=== PATIENT | male | born 1935 | race Caucasian/White ===

== ENCOUNTER 2017-12-06 22:42 | Inpatient (IN) | payer MEDICARE, BC ==
[2017-12-06 23:43] VITALS: BMI 31.8
[2017-12-07 00:31] LABS: Phosphorus 3.6 mg/dL (2.3-4.7)
[2017-12-07 00:42] LABS: Troponin I 0.285 ng/mL (< 0.028)
[2017-12-07] MEDS ORDERED: Mag-Al 1200 mg/1200 mg/30 ML UDCUP PO PRN (01:47)
[2017-12-07] MEDS ORDERED: Senokot 8.6 MG TAB PO PRN (01:47)
[2017-12-07] MEDS ORDERED: Nitroglycerin 0.4 MG TAB (25 Tab Bottle) PO PRN (01:47)
[2017-12-07] MEDS ORDERED: Ondansetron HCl/PF 4 MG/2 ML Vial IVP PRN (01:47)
[2017-12-07] MEDS ORDERED: Calcium Carbonate 500 MG ChewTAB PO PRN (01:47)
[2017-12-07] MEDS ORDERED: Ondansetron ODT 4 MG TAB PO PRN (01:47)
[2017-12-07] MEDS ORDERED: Labetalol HCl 100 MG/20 ML VIAL SLOW IVP PRN (01:56)
[2017-12-07] MEDS ORDERED: NS 0.9% w/ 20 MEQ KCL 1,000 ML/1,000 ML BAG IV SCH (02:00)
[2017-12-07] MEDS ORDERED: Enoxaparin Sodium 80 MG/0.8 ML SYRINGE SC SCH (02:00)
[2017-12-07] MEDS: Lorazepam 1 MG TAB PO SCH (03:00)
[2017-12-07 03:58] LABS: Troponin I 0.778 ng/mL (< 0.028)
[2017-12-07] MEDS: Nitroglycerin 2% Ointment 1 INCH/1 GM Packet TOP SCH ×3 (05:54→21:51)
[2017-12-07 07:28] LABS: Anion Gap 12 mmol/L (10-20); BUN (Urea Nitrogen) 17 mg/dL (8.4-25.7); Calc. Creatinine Clearance 85 mL/min (70-130); Calcium 9.1 mg/dL (7.8-10.44); Carbon Dioxide 28 mmol/L (23-31); Cardiac Risk 3.2 (Less than 4.5); Chloride 102 mmol/L (98-107); Cholesterol 142 mg/dl (< 200 Desired); Estimated GFR-MDRD 83; Glucose 104 mg/dL (83-110); HDL Cholesterol 44 mg/dL (>60 Neg Risk); LDL Cholesterol, Calculated 81 mg/dL; Potassium 3.8 mmol/L (3.5-5.1); Sodium 138 mmol/L (136-145); Triglycerides 84 mg/dL (Less than 150)
[2017-12-07 07:40] LABS: Troponin I 1.176 ng/mL (< 0.028)
[2017-12-07] MEDS ORDERED: Aspirin 325 MG TAB PO SCH (09:00)
[2017-12-07] MEDS ORDERED: Non-Formulary Item 1 EACH (Esomeprazole Magnesium [Nexium 24hr] 40 MG) PO SCH (09:00)
--- NOTE | 2017-12-07 09:00 | HP ---
DATE OF ADMISSION: 12/06/2017 Patient was seen and examined on 12/06/2017. CHIEF COMPLAINT: Chest discomfort. HISTORY OF PRESENT ILLNESS: The patient is a transfer from [facility]. PRIMARY CARE PHYSICIAN: Dr. Malachi Pond. PRIMARY CARD FIXER: Patient has seen Dr. Chakraborty in the remote past. He has been seeing a cardio logist in the last few years. HISTORY OF PRESENT ILLNESS: Patient is an 82-year-old male who underwent coronary artery bypass graf burger in 1987, presented to [facility] with chest discomfort that started around 7:30 p. m. while he was resting at home. It was gradual onset pressure-like, precordial in location. It imp roved with nitroglycerin. He tried taking Nexium and Tums without much help. No nausea, vomiting, d iaphoresis, shortness of breath reported. No recent immobilization, travel, fever, chills, or cough reported. His initial troponin was negative. EKG showed sinus rhythm with first-degree AV block wit h some nonspecific ST-T wave changes. He was transferred to this facility for hospital admission. PAST MEDICAL HISTORY: 1. Coronary artery disease, status post CABG in 1987. 2. Hypertension. 3. Hyperlipidemia. 4. Anxiety. 5. Gastroesophageal reflux disease. 6. History of prostate cancer. 7. Macular degeneration. 8. History of migraine. PAST SURGICAL HISTORY: 1. Coronary artery bypass grafting in 1987. 2. Tonsillectomy. 3. Cataract surgery. 4. Cardiac catheterization. 5. Knee surgery. 6. Vasectomy. 7. Prostate biopsy. ALLERGIES: Patient is allergic to CODEINE causes anaphylaxis and TRAMADOL causes hallucinations. CURRENT HOME MEDICATIONS: Aspirin 81 mg daily, Ziac 10/6.25 two tablets daily, Nexium 40 mg daily, l orazepam 1.5 mg at 0600, Flomax 0.4 mg daily. SOCIAL HISTORY: Patient currently lives at home with his . He is [employer]. 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 He drinks alcohol socially. No smoking or drug use. He is retired. REVIEW OF SYSTEMS: The following complete review of systems was negative, unless otherwise mentioned in the HPI or below: Constitutional: Weight loss or gain, ability to conduct usual activities. Sk in: Rash, itching. Eyes: Double vision, pain. ENT/Mouth: Nose bleeding, neck stiffness, pain, te nderness. Cardiovascular: Palpitations, dyspnea on exertion, orthopnea. Respiratory: Shortness of breath, wheezing, cough, hemoptysis, fever, or night sweats. Gastrointestinal: Poor appetite, abdo dianne pain, heartburn, nausea, vomiting, constipation, or diarrhea. Genitourinary: Urgency, frequen cy, dysuria, nocturia. Musculoskeletal: Pain, swelling. Neurologic/Psychiatric: Anxiety, depressi on. Allergy/Immunologic: Skin rash, bleeding tendency. PHYSICAL EXAMINATION: VITAL SIGNS: Temperature 97.4, blood pressure 124/61, pulse rate of 66, respiration 16, O2 saturatio n 96% on 1 liter nasal cannula. GENERAL: An 82-year-old male in no apparent distress. Denies any chest discomfort at this time. HEENT: Atraumatic, normocephalic. Sclerae anicteric. Moist mucous membrane. No oral lesion. NECK: Supple, no JVD appreciated. No carotid bruit. LUNGS: Clear to auscultation bilaterally. HEART: S1, S2 present. Regular rate and rhythm. No murmur, rubs, or gallops appreciated. Healed m idline scar from previous CABG. ABDOMEN: Soft, nontender, bowel sounds present. EXTREMITIES: No edema or calf tenderness. NEUROLOGIC: Grossly nonfocal, moves all four extremities. PSYCHIATRY: Alert, awake, oriented x3. SKIN: Warm and dry. LYMPH NODES: No palpable lymph nodes in the neck. PERIPHERAL VASCULAR: Radial pulses palpable bilaterally. MUSCULOSKELETAL: No joint swelling or tenderness. LABORATORY FINDINGS: Labs from [facility] ER, initial troponin was negative. CBC showed WBC 9.8 with hemoglobin 14.6, hematocrit 43.6, platelet count of 594. BNP was 115. LFTs in normal range. Chemi stry showed sodium 137, potassium 3.8, chloride 97, bicarbonate of 31, BUN 17, creatinine 1.2. Last troponin at midnight is 0.285. TSH is normal. Magnesium, phosphorus in normal range. Chest x-ray in the outside facility was negative per verbal report. EKG by my review as discussed ab kumar. IMPRESSION: 1. Chest discomfort suspicious of non-ST elevation myocardial infarction. A chest discomfort resolv ed with nitroglycerin. Troponin went up to 0.285. 2. Hypertension. 3. Hyperlipidemia. 4. Anxiety. 5. Gastroesophageal reflux disease. 6. Macular degeneration. 7. Chronically elevated platelet count per PCP's office report. 8. History of prostate cancer/benign prostatic hypertrophy. 9. Obesity with a BMI of 31.9. PLAN: Patient will be monitored as a 23-hour observation. Cardiology will be consulted. We will gi ve him 1 dose of Lovenox for time being. We will continue bisoprolol with hydrochlorothiazide. Cont inue aspirin and Flomax. Continue lorazepam for anxiety. Plan of care was discussed with the patien t and the family at the bedside. They stated understanding.
[2017-12-07] MEDS: Bisoprolol Fumarate 5 MG TAB PO SCH ×2 (10:01→20:30)
[2017-12-07] MEDS: Docusate 100 MG CAP PO SCH ×2 (10:02→20:30)
[2017-12-07] MEDS ORDERED: Iopamidol 370 76% 100 ML VIAL ONE (11:11)
[2017-12-07] MEDS ORDERED: Iopamidol 370 76% 50 ML VIAL FS ONE (11:11)
--- NOTE | 2017-12-07 12:38 | CON ---
DATE OF CONSULTATION: 12/07/2017 REASON FOR CONSULTATION: Non-Q-wave myocardial infarction. HISTORY OF PRESENT ILLNESS: Mr. Arce is a very pleasant 82-year-old gentleman who has a previ ous history of CAD status post bypass surgery in 1987. He has been lost to followup. He states he h as not had cardiology followup since that time period. He states recently over the last 3 days, he h as had episodes of chest pain. He described it as epigastric. He thought it was acid reflux. He in itially took Tums with some relief. He then states yesterday he took Tums without any relief. He taylor bsequently presented to the emergency room. His troponin was mildly elevated at 1.1. PAST MEDICAL HISTORY: 1. As above. 2. CAD status post bypass surgery x4, unknown vessels. 3. Hypertension. 4. Hyperlipidemia. 5. Anxiety. 6. Prostate cancer. 7. Macular degeneration. 8. Migraine headaches. PAST SURGICAL HISTORY: Tonsillectomy, cataract surgery, knee surgery, vasectomy. ALLERGIES: CODEINE. MEDICATIONS: Include aspirin, loratadine, Ziac, Nexium and Flomax. SOCIAL HISTORY: No current tobacco or alcohol use. 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 REVIEW OF SYSTEMS: Ten-point review of systems was reviewed and as above, otherwise negative. PHYSICAL EXAMINATION: GENERAL: Patient is a pleasant male who is in no acute distress. The patient appears his stated age . VITAL SIGNS: Blood pressure 132/62, pulse 63, temperature 98.4. NEUROLOGIC: The patient is alert and oriented times 3 with no focal neurologic deficits. HEENT: Sclerae without icterus. Mouth has moist mucous membranes with normal pallor. NECK: No JVD. Carotid upstroke brisk. No bruits bilaterally. LUNGS: Clear to auscultation with unlabored respirations. BACK: No scoliosis or kyphosis. CARDIAC: Regular rate and rhythm with normal S1 and S2. No S3 or S4 noted. No significant rubs, mu rmurs, thrills, or gallops noted throughout the precordium. PMI is not displaced. There is no yung ternal heave. ABDOMEN: Soft, nontender, nondistended. No peritoneal signs present. No hepatosplenomegaly. No ab normal striae. EXTREMITIES: 2+ femoral and 2+ dorsalis pedis pulses. No cyanosis, clubbing, or edema. SKIN: No gross abnormalities. PERTINENT LABS: As above including a creatinine of 0.8, hemoglobin 14. EKG, normal sinus, nonspecif ic ST-T wave changes. IMPRESSION: 1. Non-Q-wave myocardial infarction. 2. Coronary artery disease. 3. Status post bypass surgery. RECOMMENDATIONS: Mr. Arce's symptoms certainly suggest angina. His troponin is positive. At this point, I recommend coronary angiography plus PCI. I discussed the procedure in full detail wit h Mr. Stern. The risks of the procedure were also discussed. The risks of the procedure include b ut are not limited to the following: , stroke, TN, need for emergency surgery, loss of limb, bl eeding, and infection, as well as a reaction to the dye causing kidney failure and needing long-term dialysis. I also discussed the risks of PCI to include all of the above including coronary dissectio n and perforation in addition to acute stent thrombosis and restenosis. All questions about the proc edure were answered. Given the above, the patient agreed to proceed with coronary angiography and po ssible PCI. All questions were answered. We also recommend a drug-coated stent. There are no contr aindications. Further recommendations pending the above.
[2017-12-07] MEDS ORDERED: Clopidogrel Bisulfate 300 MG TAB ONE (13:03)
[2017-12-07] MEDS ORDERED: Heparin 10,000 UNITS/1 ML VIAL ONE (13:28)
[2017-12-07] MEDS ORDERED: Adenosine 6 MG/2 ML VIAL ONE (13:28)
[2017-12-07] MEDS ORDERED: Nitroglycerin 100MG/250ML BOT 250 ML ONE (13:28)
[2017-12-07] MEDS ORDERED: Aggrastat 12.5 MG/250 ML 250 ML ONE (14:10)
[2017-12-07] MEDS ORDERED: Zolpidem Tartrate 5 MG TAB PO PRN (14:26)
[2017-12-07] MEDS ORDERED: cloNIDine 0.1 MG TAB PO PRN (14:26)
[2017-12-07] MEDS ORDERED: Nitroglycerin 0.4 MG TAB (25 Tab Bottle) SL PRN (14:26)
[2017-12-07] MEDS: Aggrastat 12.5 MG/250 ML 250 ML IVPB SCH (16:11)
[2017-12-07] MEDS: Sodium Chloride 0.9% 1,000 ML IV SCH ×2 (16:17→22:13)
--- NOTE | 2017-12-07 16:33 | EKG ---
Test Reason : POST STENT-CIRC Blood Pressure : / mmHG Vent. Rate : 067 BPM Atrial Rate : 067 BPM P-R Int : 218 ms QRS Dur : 102 ms QT Int : 474 ms P-R-T Axes : 061 -52 047 degrees QTc Int : 500 ms Sinus rhythm with 1st degree A-V block Left anterior fascicular block Cannot rule out Inferior infarct (masked by fascicular block?) , age undetermined Prolonged QT Abnormal ECG No previous ECGs available Confirmed by UZAIR JASSO, SBindu ([id number]) on 12/07/2017 4:32:25 PM Referred By: ABELARDO Confirmed By:DR. Radha DUNNE MD
[2017-12-07 19:16] LABS: Hemoglobin 13.1 g/dL (14.0-18.0); Platelet Count 630 thou/uL (130-400)
[2017-12-07] MEDS: Acetaminophen 325 MG TAB PO PRN (20:30)
[2017-12-07] MEDS: Atorvastatin Calcium 10 MG TAB PO SCH (20:30)
[2017-12-08] MEDS: Acetaminophen 325 MG TAB PO PRN (01:49)
[2017-12-08] MEDS: Aggrastat 12.5 MG/250 ML 250 ML IVPB SCH (01:54)
[2017-12-08 05:08] LABS: #Eosinphils 0.1 thou/uL (0.0-0.7); #Lymphocytes 1.2 thou/uL (1.20-3.40); #Monocytes 0.8 thou/uL (0.11-0.59); %Basophils 0.5 % (0.0-1.0); %Eosinophils 1.5 % (0.0-10.0); %Lymphocytes 12.6 % (21.0-51.0); %Monocytes 9.1 % (0.0-10.0); %Neutrophils 76.3 % (42.0-75.0); Hemoglobin 11.5 g/dL (14.0-18.0); Mean Corpuscular HGB CONC 33.7 g/dL (32.0-36.0); Mean Corpuscular Hemoglobin 30.1 pg (27.0-31.0); Mean Corpuscular Volume 89.6 fL (78.0-98.0); Mean Platelet Volume 6.1 fL (7.4-10.4); Platelet Count 601 thou/uL (130-400); RBC Distribution Width 14.2 % (11.5-14.5); Red Blood Cell (RBC) Count 3.83 mill/uL (4.70-6.10); White Blood Cell (WBC) Count 9.1 thou/uL (4.8-10.8)
[2017-12-08 05:12] LABS: ALT (SGPT) 9 U/L (8-55); AST (SGOT) 23 U/L (5-34); Albumin 3.2 g/dL (3.4-4.8); Alkaline Phosphatase 62 U/L (40-150); Anion Gap 8 mmol/L (10-20); BUN (Urea Nitrogen) 15 mg/dL (8.4-25.7); Calc. Creatinine Clearance 87 mL/min (70-130); Calcium 8.1 mg/dL (7.8-10.44); Carbon Dioxide 28 mmol/L (23-31); Chloride 104 mmol/L (98-107); Estimated GFR-MDRD 87; Globulin 1.9 g/dL (2.4-3.5); Glucose 101 mg/dL (83-110); Potassium 4.1 mmol/L (3.5-5.1); Protein, Total 5.1 g/dL (5.8-8.1); Sodium 136 mmol/L (136-145)
[2017-12-08] MEDS: Nitroglycerin 2% Ointment 1 INCH/1 GM Packet TOP SCH (05:33)
[2017-12-08] MEDS: Lorazepam 1 MG TAB PO SCH (05:33)
[2017-12-08] MEDS: Clopidogrel Bisulfate 75 MG TAB PO SCH (08:15)
[2017-12-08] MEDS: Docusate 100 MG CAP PO SCH ×2 (08:15→20:03)
[2017-12-08] MEDS: Bisoprolol Fumarate 5 MG TAB PO SCH ×2 (08:15→10:04)
--- NOTE | 2017-12-08 09:08 | PDOC.CTH ---
<Jaky Fowler - Last Filed: 12/08/17 09:06> Cardiology Progress Note - Subjective Feeling much better today. No complaints. No chest pain. - Objective Vital Signs Temp Pulse Resp BP Pulse Ox 12/08/17 05:42 92 L 12/08/17 03:45 97.9 F 64 20 111/56 L 92 L Weight 200 lb 14.4 oz 12/07/17 12/08/17 12/09/17 06:59 06:59 06:59 Intake Total 532 3162.2 Output Total 250 1130 Balance 282 2032.2 - Physical Examination General/Neuro: alert & oriented x3, NAD Neck: no JVD present Lungs: CTA Heart: RRR Abdomen: NT/ND Extremities: other: (no edema) - Telemetry Telemetry Rhythm: Sbrady - Labs Result Diagrams: 12/08/17 04:43 12/08/17 04:43 Troponin/CKMB Troponin I 1.176 ng/mL (< 0.028) H* 12/07/17 06:22 - Assessment/Plan 1. s/p NSTEMI 2. CAD s/p CABG x 4 1988 3. s/p PCI 4. HTN Stop nitropaste. start Imdur. Decrease Zebeta to prevent hypotension. Continue plavix, asa and statin. Cardiac rehab. Possible discharge tomorrow. <Santiago Mario - Last Filed: 12/09/17 07:17> Cardiology Progress Note - Objective Vital Signs Temp Pulse Pulse Pulse Resp BP BP 12/08/17 13:55 98.9 F 77 18 12/08/17 12:00 76 18 12/08/17 10:59 78 73 121/56 L 134/60 12/08/17 08:10 97.9 F 80 22 H 12/08/17 05:42 BP Pulse Ox Pulse Ox Pulse Ox 12/08/17 13:55 115/58 L 96 12/08/17 12:00 110/54 L 94 L 12/08/17 10:59 91 L 91 L 12/08/17 08:10 122/91 H 96 12/08/17 05:42 92 L Weight 200 lb 14.4 oz 12/07/17 12/08/17 12/09/17 06:59 06:59 06:59 Intake Total 532 3162.2 Output Total 250 1130 Balance 282 2032.2 - Physical Examination Extremities: other: (R groin with small hematoma and tender) - Labs Result Diagrams: 12/08/17 04:43 12/08/17 04:43 Troponin/CKMB Troponin I 1.176 ng/mL (< 0.028) H* 12/07/17 06:22 - Assessment/Plan Pt personally seen and examined by me. Change paste to imdur Right groin US
--- NOTE | 2017-12-08 19:28 | ULT ---
RIGHT GROIN ULTRASOUND WITH DUPLEX EXAMINATION: 12/08/17 HISTORY: Patient had a heart cath yesterday. Feels pain in groin when he walks. Real time imaging of the right groin shows no evidence of a hematoma. No pseudoaneurysm. Normal flow is shown within the common femoral artery and femoral vein. IMPRESSION: No evidence of hematoma or pseudoaneurysm. POS: [facility]
[2017-12-08] MEDS: Atorvastatin Calcium 10 MG TAB PO SCH (20:03)
--- NOTE | 2017-12-08 20:12 | ADD-OP ---
ADDENDUM ADDENDUM TO INTERVENTIONAL PROCEDURE: This is a very difficult case. The patient presented with unstable angina with elevated troponin. Mayuri lam was found to have severe 99% stenosis at the ostium of the saphenous vein graft to the OM2 branch. Initially a PEACOCK catheter was placed successfully. Heparin was used for anticoagulation. A loose w sunitha crossed the lesion successfully. There was no flow present after the wire crossed, which meant t he lesion was severe. A 2.0 balloon would not pass. A 1.5 balloon would not pass. A 1.2 balloon wo uld not pass. I was decided to try and place the Mailman wire for better support. This would not pa ss in through the lesion. The loose wire was then removed. The Mailman wire would not pass into the OM branch. It was then decided to proceed with better support via catheter, although there was dise ase noted the ostium. An AL1 was then placed successfully. A loose wire would not pass the lesion a fter the AL1 was placed successfully. A Whisper wire was then placed successfully across the lesion. With better support the 1.2 balloon catheter successfully crossed the lesion. This was followed by 2-0 balloon. A 2.5 x 16 mm Synergy stent was then placed. After placing this Synergy stent, there appeared to be slow reflow. Adenosine and nitroglycerin were given with improvement in flow. We then decided to proceed with stent implantation of the . This appeared to be significant. A 3.5 x 12 mm Synergy stent was then placed successfully. There appeared to be improvement in flow no je to the OM branch after IC nitroglycerin and adenosine. A 37 minutes of fluoroscopy and over 200 mL of contrast was then used. I decided to place the patient on and placed on the floor overn [facility].
[2017-12-09] MEDS: Lorazepam 1 MG TAB PO SCH (06:07)
[2017-12-09] MEDS: Bisoprolol Fumarate 5 MG TAB PO SCH (08:52)
[2017-12-09] MEDS: Docusate 100 MG CAP PO SCH (08:53)
[2017-12-09] MEDS: Clopidogrel Bisulfate 75 MG TAB PO SCH (08:53)
--- NOTE | 2017-12-09 10:23 | DIS ---
DATE OF ADMISSION: 12/07/2017 DATE OF DISCHARGE: 12/09/2017 PRIMARY CARE PHYSICIAN: Dr. Malachi Pond. DISCHARGE DIAGNOSES: 1. Non-ST elevation myocardial infarction. 2. Status post drug-eluting stent placement. 3. Coronary artery disease. 4. Hyperlipidemia. 5. Essential hypertension. 6. Gastroesophageal reflux disease. 7. Benign prostatic hypertrophy without lower urinary tract obstruction. CONSULTATION: Cardiology, Dr. Santiago Mario. PROCEDURES: 1. Echocardiogram on 12/07/2017 that showed an EF of 50%-55%, diastolic dysfunction, moderately dila je LA, mild MR, and mild TR. 2. Percutaneous transluminal coronary angiography with percutaneous intervention per Dr. Mario o n 12/07/2017; very difficult case, patient had a severe 99% stenosis of the ostium of the saphenous v ein graft to the OM2 branch. Balloon would not pass either 2.0, 1.5 or 1.2. Able to get an AL1 plac ed successfully and ultimately 2.5 x 16 mm Synergy stent followed by another 3.5 x 12 mm Synergy sten t. HISTORY AND PHYSICAL: Mr. Arce is a very pleasant 82-year-old white male who was in the Emerg ency Department with complaints of chest pain on 12/06/2017. Patient was worked up in the emergency department and found to have elevated troponin 0.285. So what we were called for admission. HOSPITAL COURSE: The patient seen and examined by Dr. Monae and placed in observation status initial ly, Cardiology was consulted and agreed that he need to proceed with coronary angiography. The patie nt went to the labor contract analyst on 12/07/2017 for stent placement which was extremely difficult as stated abo ve. Ultimately, 2 stents were placed and the patient had no resolution of symptoms. Troponin peaked at 1.1. The patient was watched overnight on Imdur from 12/08/2017-12/09/2017, today he was chest pain free a nd stable for discharge. PHYSICAL EXAMINATION: The patient was seen and examined on the day of discharge. Discharge plan and disposition was discussed with the patient's and patient at the bedside. DISCHARGE MEDICATIONS: 1. Lipitor 10 mg p.o. at bedtime. 2. Zebeta 10 mg p.o. daily. 3. Plavix 75 mg daily. 4. Isosorbide mononitrate 30 mg p.o. daily. 5. Nitroglycerin 0.4 mg sublingual q.5 minutes p.r.n. chest pain. Prescriptions of these were sent by Cardiology 6. Aspirin 81 mg daily to continue. 7. Flomax 0.4 mg daily to continue. FOLLOWUP APPOINTMENTS: 1. Primary care physician within a week. 2. Dr. Mario in 1-2 weeks. DISCHARGE DIET: Heart healthy recommended. DISCHARGE ACTIVITY: As tolerated per cardiopulmonary limits. DISCHARGE CONDITION: Stable. DISPOSITION: Discharged home via private vehicle.
[2017-12-09 12:16] VITALS: BP 117/57; TEMP 97.7
--- NOTE | 2017-12-09 16:45 | PDOC.PN ---
- Subjective Encounter Start Date: 12/08/17 Encounter Start Time: 13:00 -: old records requested/rev - Objective Resuscitation Status: Resuscitation Status FULL:Full Resuscitation Vital Signs & Weight: Vital Signs (12 hours) Temp Pulse Pulse Pulse Resp BP BP 12/09/17 11:45 97.7 F 80 18 12/09/17 09:10 92 91 156/68 H 152/76 H 12/09/17 08:00 98.6 F 78 18 BP Pulse Ox Pulse Ox 12/09/17 11:45 117/57 L 92 L 12/09/17 09:10 91 L 12/09/17 08:00 140/63 94 L Weight Weight 203 lb 4.8 oz I&O: 12/08/17 12/09/17 12/10/17 06:59 06:59 06:59 Intake Total 3162.2 1210 Output Total 1130 900 Balance 2032.2 310 Result Diagrams: 12/08/17 04:43 12/08/17 04:43 Dx/Plan - Plan * .
== END 2017-12-09 12:32 | disposition home or self-care (01) | DRG 247 ==
LOC: 2SW 22:43 → OBSVTOIN 22:43 → 2NO 12-07 11:21
PROVIDERS: ADMIT Internal Medicine; ATTEND Internal Medicine
PROC: 027035Z Dilation of Coronary Artery, One Artery with Two Drug-eluting Intraluminal Devices, Percutaneous Approach (ICD-10-PCS; principal; 2017-12-07)
PROC: 4A023N7 Measurement of Cardiac Sampling and Pressure, Left Heart, Percutaneous Approach (ICD-10-PCS; 2017-12-07)
PROC: B2111ZZ Fluoroscopy of Multiple Coronary Arteries using Low Osmolar Contrast (ICD-10-PCS; 2017-12-07)
PROC: B2151ZZ Fluoroscopy of Left Heart using Low Osmolar Contrast (ICD-10-PCS; 2017-12-07)
DX: I21.4 Non-ST elevation (NSTEMI) myocardial infarction (principal); E78.5 Hyperlipidemia, unspecified; I10 Essential (primary) hypertension; K21.9 Gastro-esophageal reflux disease without esophagitis; N40.0 Benign prostatic hyperplasia without lower urinary tract symptoms; Z95.1 Presence of aortocoronary bypass graft; Z85.46 Personal history of malignant neoplasm of prostate; F41.9 Anxiety disorder, unspecified; H35.30 Unspecified macular degeneration; E66.9 Obesity, unspecified; Z68.31 Body mass index [BMI] 31.0-31.9, adult; I25.110 Atherosclerotic heart disease of native coronary artery with unstable angina pectoris
CPT/HCPCS: 36415; 76942; 80048; 80053; 80061; 83735; 84100; 84443; 84484; 85025; 85347; 92928; 92977; 93005; 93010; 93306; 93459; 93798; 93976; 94760; A4216; C1725; C1769; C1874; C1887; C9600; J0153; J1644; J1650; J3246

== ENCOUNTER 2018-11-01 22:47 | Inpatient (IN) | payer MEDICARE, BC ==
--- NOTE | 2018-11-01 23:07 | RAD ---
XR Chest 1 View Portable History: Chest pain Comparison: None. Findings: Lungs are clear. No pneumothorax or effusion. Cardiac silhouette and mediastinal contours a re within normal limits. Evidence of prior cardiac surgery. Impression: No acute intrathoracic abnormality.
[2018-11-01 23:16] LABS: #Basophils 0.1 thou/uL (0.0-0.2); #Eosinphils 0.2 thou/uL (0.0-0.7); #Lymphocytes 2.2 thou/uL (1.20-3.40); #Neutrophils 7.5 thou/uL (1.40-6.50); %Basophils 0.6 % (0.0-1.0); %Eosinophils 2.1 % (0.0-10.0); %Monocytes 9.3 % (0.0-10.0); %Neutrophils 68.1 % (42.0-75.0); Hemoglobin 15.2 g/dL (14.0-18.0); Mean Corpuscular HGB CONC 32.2 g/dL (32.0-36.0); Mean Corpuscular Hemoglobin 28.7 pg (27.0-31.0); Mean Corpuscular Volume 89.1 fL (78.0-98.0); Mean Platelet Volume 6.4 fL (7.4-10.4); Platelet Count 868 thou/uL (130-400); RBC Distribution Width 13.9 % (11.5-14.5); Red Blood Cell (RBC) Count 5.29 mill/uL (4.70-6.10)
[2018-11-01 23:29] LABS: ALT (SGPT) 16 U/L (8-55); AST (SGOT) 20 U/L (5-34); Albumin 4.4 g/dL (3.4-4.8); Alkaline Phosphatase 87 U/L (40-150); Anion Gap 13 mmol/L (10-20); BUN (Urea Nitrogen) 15 mg/dL (8.4-25.7); Bilirubin, Total 0.7 mg/dL (0.2-1.2); CK (CPK) 62 U/L (30-200); Calc. Creatinine Clearance 0 mL/min (70-130); Calcium 9.7 mg/dL (7.8-10.44); Carbon Dioxide 28 mmol/L (23-31); Chloride 96 mmol/L (98-107); Estimated GFR-MDRD 64; Globulin 2.9 g/dL (2.4-3.5); Glucose 103 mg/dL (83-110); Lipase 20 U/L (8-78); Potassium 4.8 mmol/L (3.5-5.1); Protein, Total 7.3 g/dL (5.8-8.1); Sodium 132 mmol/L (136-145)
[2018-11-01 23:51] LABS: CKMB 2.1 ng/mL (0-6.6)
[2018-11-02] MEDS ORDERED: Aspirin Chewable 81 MG TAB ONE ×2 (02:50→02:51)
[2018-11-02] MEDS ORDERED: Nitroglycerin 0.4 MG TAB 1 EACH ONE (02:50)
[2018-11-02 03:16] LABS: Troponin I 0.081 ng/mL (< 0.028)
[2018-11-02] MEDS ORDERED: Enoxaparin Sodium 60 MG/0.6 ML SYRINGE ONE (04:58)
[2018-11-02] MEDS ORDERED: Enoxaparin Sodium 30 MG/0.3 ML SYRINGE ONE (04:58)
[2018-11-02 06:08] VITALS: BMI 29.6
[2018-11-02 06:44] LABS: Troponin I 0.158 ng/mL (< 0.028)
[2018-11-02] MEDS ORDERED: Ondansetron ODT 4 MG TAB SL PRN (07:37)
[2018-11-02] MEDS ORDERED: Ondansetron PF 4 MG/2 ML Vial IVP PRN ×2 (07:37→08:10)
[2018-11-02] MEDS ORDERED: Ondansetron ODT 4 MG TAB PO PRN (08:10)
[2018-11-02] MEDS ORDERED: hydrALAZINE 20 MG/ML VIAL SLOW IVP PRN (08:10)
[2018-11-02] MEDS ORDERED: Senokot S 8.6-50 MG TAB PO PRN (08:10)
[2018-11-02] MEDS ORDERED: Calcium Carbonate 500 MG ChewTAB PO PRN (08:10)
[2018-11-02] MEDS ORDERED: Sodium Chloride 0.65% Nasal 44 ML BOT EA NARE PRN (08:10)
[2018-11-02] MEDS ORDERED: Nitroglycerin 0.4 MG TAB (25 Tab Bottle) SL PRN (08:10)
[2018-11-02] MEDS ORDERED: Bisacodyl 10 MG SUPP PR PRN (08:10)
[2018-11-02] MEDS ORDERED: Loratadine 10 MG TAB PO PRN (08:10)
[2018-11-02] MEDS ORDERED: Loperamide HCl 2 MG CAP PO PRN ×2 (08:10)
[2018-11-02] MEDS ORDERED: Zolpidem Tartrate 5 MG TAB PO PRN (08:10)
[2018-11-02] MEDS ORDERED: Diabetic Tussin 200 MG/10 ML UDCUP PO PRN (08:10)
[2018-11-02] MEDS ORDERED: Acetaminophen 325 MG TAB PO PRN (08:10)
[2018-11-02] MEDS ORDERED: Aspirin 325 MG TAB PO SCH (09:00)
[2018-11-02] MEDS ORDERED: Metoprolol Tartrate 25 MG TAB PO SCH (09:00)
[2018-11-02 09:25] LABS: Troponin I 0.246 ng/mL (< 0.028)
[2018-11-02 09:44] LABS: Bilirubin Negative (Negative); Blood, Urine Negative (Negative); Clarity CLEAR (Clear); Glucose, Urine (Dipstick) Negative (Negative); Leukocyte Negative (Negative); Nitrite Negative (Negative); Protein, Urine (Dipstick) Negative (Neg-Trace); Specific Gravity, Urine 1.012 (1.002-1.036); Urobilinogen 0.2 mg/dL (0.2-1.0); pH, Urine 7.5 (5.0-9.0)
[2018-11-02 09:47] LABS: Bacteria/HPF None Seen HPF (None Seen); Hyaline Casts/LPF 0-3 HYALINE CAST LPF (0-3 Hyaline); RBC/HPF 0-3 HPF (0-3); Squamous Epithelial None Seen HPF (0-3); WBC/HPF None Seen HPF (0-3)
[2018-11-02] MEDS ORDERED: Prevnar 13-Val Conj/PF 0.5 ML SYRINGE IM ONE (10:15)
[2018-11-02] MEDS: Famotidine 20 MG TAB PO SCH (10:18)
[2018-11-02] MEDS: Bisoprolol Fumarate 5 MG TAB PO SCH (10:18)
[2018-11-02] MEDS: Tamsulosin HCl 0.4 MG CAP PO SCH (10:18)
[2018-11-02] MEDS: Clopidogrel Bisulfate 75 MG TAB PO SCH (10:18)
[2018-11-02] MEDS: Enoxaparin Sodium 100 MG/ML SYRINGE SC SCH ×2 (10:21→21:39)
--- NOTE | 2018-11-02 11:20 | HP ---
PRIMARY CARE PHYSICIAN: Malachi Pond MD. PRIMARY VIOLIN TUTOR: Santiago Mario MD. REASON FOR ADMISSION: Unstable angina. HISTORY OF PRESENT ILLNESS: An 83-year-old male, who has previous history of coronary artery disease, required CABG x4 in 1987, subsequently last year in November the patient had cardiac catheterization and two stents placed in one of the occluded bypass graft by Dr. Mario. The patient came this time to emergency room for evaluation of recurrent chest pain. The patient reports that about a week ago, he was having chest pain which was left-sided with radiation to left arm without any association of nausea, vomiting, diaphoresis. The patient had normal nitroglycerin at home which he took and his pain subsided. Two to three days later, he had again similar chest pain, which required nitroglycerin and the pain subsided. Yesterday, he had total three episodes of chest pain which responded to nitroglycerin, but as per his instruction, he had recurrent chest pain despite taking nitroglycerin. He decided to fall panic button and he came to emergency room for evaluation. In the emergency room, he had indeterminate troponin. He had EKG which showed nonspecific ST-T changes. He was given Lovenox 1 mg/kg, nitroglycerin, IV fluid, aspirin, and subsequently he was admitted to telemetry floor. Currently, when I saw at that time, he was not having any chest discomfort. The patient denies any orthopnea, PND, leg swelling, calf edema, or calf tenderness. He denies any palpitation, dizziness, or syncope. He denies any nausea, vomiting, or diaphoresis. REVIEW OF SYSTEMS: CONSTITUTIONAL: Negative for weight loss or gain, ability to conduct usual activities. SKIN: Negative for rash, itching. EYES: Negative for double vision, pain. ENT/MOUTH: Negative for nose bleeding, neck stiffness, pain, tenderness. CARDIOVASCULAR: Negative for palpitations, dyspnea on exertion, orthopnea. RESPIRATORY: Negative for shortness of breath, wheezing, cough, hemoptysis, fever or night sweats. GASTROINTESTINAL: Negative for poor appetite, abdominal pain, heartburn, nausea , vomiting, constipation, or diarrhea. GENITOURINARY: Negative for urgency, frequency, dysuria, nocturia. MUSCULOSKELETAL: Negative for pain, swelling. NEUROLOGIC/PSYCHIATRIC: Negative for anxiety, depression. ALLERGY/IMMUNOLOGIC: Negative for skin rash, bleeding tendency. Please see my HPI for pertinent positives and negatives. All other review of systems reviewed and negative except as mentioned in HPI. PAST MEDICAL HISTORY: Coronary artery disease required CABG in 1987 and subsequently, the patient had cardiac catheterization and stent placement in the occluded bypass graft in 2018, hypertension, dyslipidemia, gastroesophageal reflux disease, history of prostate cancer, macular degeneration, history of migraine headache. PAST PSYCHIATRIC HISTORY: Anxiety disorder. PAST SURGICAL HISTORY: Tonsillectomy, cataract surgery, CABG in 1987, cardiac catheterization with stent placement, knee surgery, vasectomy, prostate biopsy. ALLERGIES: THE PATIENT IS ALLERGIC TO CODEINE, WHICH CAUSES ANAPHYLAXIS AND TRAMADOL WHICH CAUSES HALLUCINATION. SOCIAL HISTORY: The patient is . He lives at home with his . No history of smoking. He drinks alcohol occasionally. He is retired. FAMILY HISTORY: No strong family history of CAD, CVA or cancer. CURRENT HOME MEDICATIONS: 1. Lipitor 40 mg p.o. daily. 2. Bisoprolol with hydrochlorothiazide 10/625 two tablets p.o. daily. 3. Lisinopril 5 mg p.o. daily. 4. Lorazepam one or two tablets p.o. daily p.r.n. 5. Flomax 0.4 mg p.o. daily. 6. Nitroglycerin 0.4 mg sublingual p.r.n. 7. Aspirin 81 mg daily. 8. Plavix 75 mg p.o. daily. 9. Imdur 30 mg p.o. daily. EMERGENCY ROOM COURSE: The patient has received Lovenox 1 mg/kg, aspirin, nitroglycerin, and IV fluid. PHYSICAL EXAMINATION: VITAL SIGNS: On arrival, blood pressure 184/46, pulse 74, respiratory rate 18, saturation 96% on room air. Weight 86.4 kg, temperature 98.6. GENERAL: The patient is currently alert, awake, no obvious acute distress. HEENT: Head; normocephalic and atraumatic. Eyes; pupils round, reactive to light. Extraocular muscle intact. ENT, oropharynx within normal limits. Moist mucous membranes. No oral lesion. No pharyngeal erythema no exudate. NECK: Supple. No JVD. No thyromegaly. No carotid bruit. No jugular venous distention. LUNGS: Clear to auscultation without any rhonchi or rales. CARDIAC: S1 and S2 appears regular. No murmur. No gallop. No rub. ABDOMEN: Soft. Bowel sounds present. Nontender. Nondistended. No organomegaly. No mass. No suprapubic tenderness. BACK: Unremarkable. No CVA tenderness. EXTREMITIES: Upper extremities, passive movement of all joints are normal. Lower extremities, no edema. Good distal pulsation. No calf tenderness. SKIN: No skin rash. HEMATOLOGICAL: No lymphadenopathy. NEUROLOGIC: Nonfocal examination. SIGNIFICANT LABORATORY DATA: EKG showing normal sinus rhythm, left anterior fascicular block, first-degree AV block, nonspecific ST-T changes. Chest x-ray based on my review, no acute cardiopulmonary process. CBC; WBC 11.0, hemoglobin 15.2, platelet 868. BMP; sodium 132, potassium 4.8, chloride 96, carbon dioxide 28, BUN 15, creatinine 1.10, glucose 103, calcium 9.7, magnesium 2.0. LFT; AST 20, ALT 16, alkaline phosphatase 87, albumin 4.4, lipase 20. CK 62, CK-MB 2.1, troponin I 0.038, then 0.081, then 0.158, then 0.246. Urinalysis normal. ASSESSMENT AND PLAN: 1. Unstable angina. The patient has recurrent crescendo angina. Description of chest pain is atypical anginal. He has nonspecific ST-T changes and he has elevated troponin in indeterminate range. The patient was already taking aspirin and he has known history of CAD. He has other several risk factors for coronary artery disease. He does not have any left ventricular failure symptoms. Based on this , the patient has intermediate score of EVERETT score and the patient is intermediate risk. Cardiology will be consulted. The patient will be treated medically with aspirin 325 mg p.o. daily, nitroglycerin patch q.8 hourly, Lipitor 40 mg p.o. daily, bisoprolol 10 mg daily, lisinopril 5 mg daily, Lovenox 1 mg/kg subcu twice daily. We will monitor on telemetry floor. Echocardiography will be obtained. We will check lipid profile tomorrow morning. We will closely monitor on telemetry floor. 2. Coronary artery disease with history of CABG and stent as mentioned in problem #1. Currently, the patient has an unstable angina and he is on optimum medical therapy. Cardiology has been consulted and they will decide the next step. 3. Hypertension, currently well controlled with bisoprolol 10 mg daily, hydrochlorothiazide 12.5 mg daily, lisinopril 5 mg p.o. daily. He also has nitroglycerin patch q.8 hourly. 4. Dyslipidemia. Continue Lipitor 40 mg p.o. at bedtime. Check lipid profile tomorrow morning. 5. Benign enlargement of prostate. Continue Flomax 0.4 mg p.o. daily. 6. Anxiety disorder. We will continue lorazepam 1 mg q.6 hourly p.r.n. 7. Thrombocytosis, chronic. The patient is on antiplatelet therapy. The patient will need outpatient followup. 8. Deep venous thrombosis prophylaxis. The patient is already on Lovenox therapy. 9. GI prophylaxis, Pepcid 20 mg p.o. daily. CODE STATUS: The patient is full code. The patient's is surrogate decision maker. DISPOSITION PLAN: Based on clinical course and Cardiology recommendation. Plan of care extensively discussed with the patient and his at bedside. Job ID: [id number] MTDD
[2018-11-02] MEDS: Lorazepam 1 MG TAB PO PRN (12:31)
[2018-11-02] MEDS: Nitroglycerin 2% Ointment 1 INCH/1 GM Packet TOP SCH ×2 (14:17→21:38)
[2018-11-02] MEDS: Atorvastatin Calcium 40 MG TAB PO SCH (21:39)
[2018-11-03 03:47] LABS: #Basophils 0.1 thou/uL (0.0-0.2); #Eosinphils 0.1 thou/uL (0.0-0.7); #Lymphocytes 1.2 thou/uL (1.20-3.40); #Monocytes 0.7 thou/uL (0.11-0.59); #Neutrophils 7.2 thou/uL (1.40-6.50); %Basophils 1.1 % (0.0-1.0); %Eosinophils 1.2 % (0.0-10.0); %Lymphocytes 12.4 % (21.0-51.0); %Neutrophils 77.3 % (42.0-75.0); Hemoglobin 13.8 g/dL (14.0-18.0); Mean Corpuscular HGB CONC 32.5 g/dL (32.0-36.0); Mean Platelet Volume 6.6 fL (7.4-10.4); Platelet Count 686 thou/uL (130-400); RBC Distribution Width 13.8 % (11.5-14.5); Red Blood Cell (RBC) Count 4.77 mill/uL (4.70-6.10); White Blood Cell (WBC) Count 9.3 thou/uL (4.8-10.8)
[2018-11-03 04:13] LABS: Anion Gap 11 mmol/L (10-20); BUN (Urea Nitrogen) 15 mg/dL (8.4-25.7); Calc. Creatinine Clearance 85 mL/min (70-130); Calcium 8.8 mg/dL (7.8-10.44); Carbon Dioxide 26 mmol/L (23-31); Cardiac Risk 3.3 (Less than 4.5); Chloride 101 mmol/L (98-107); Cholesterol 126 mg/dl (< 200 Desired); Estimated GFR-MDRD Greater than 90; Glucose 95 mg/dL (83-110); HDL Cholesterol 38 mg/dL (>60 Neg Risk); LDL Cholesterol, Calculated 70 mg/dL; Potassium 4.2 mmol/L (3.5-5.1); Sodium 134 mmol/L (136-145); Triglycerides 91 mg/dL (Less than 150)
[2018-11-03] MEDS: Nitroglycerin 2% Ointment 1 INCH/1 GM Packet TOP SCH ×3 (06:50→20:47)
[2018-11-03] MEDS: Aspirin 325 mg Enteric Coated Tablet PO SCH (09:15)
[2018-11-03] MEDS: Lorazepam 1 MG TAB PO PRN ×2 (09:15→20:47)
[2018-11-03] MEDS: Famotidine 20 MG TAB PO SCH (09:15)
[2018-11-03] MEDS: Hydrochlorothiazide 25 MG TAB PO SCH (09:16)
[2018-11-03] MEDS: Clopidogrel Bisulfate 75 MG TAB PO SCH (09:16)
[2018-11-03] MEDS: Bisoprolol Fumarate 5 MG TAB PO SCH (09:16)
[2018-11-03] MEDS: Tamsulosin HCl 0.4 MG CAP PO SCH (09:17)
[2018-11-03] MEDS: Lisinopril 5 MG TAB PO SCH (09:17)
[2018-11-03] MEDS: Enoxaparin Sodium 100 MG/ML SYRINGE SC SCH ×2 (09:17→20:47)
--- NOTE | 2018-11-03 11:06 | PDOC.PN ---
- Subjective Encounter Start Date: 11/03/18 Encounter Start Time: 07:40 Patient seen and examined. No new complaints. No overnight events - Objective Resuscitation Status - Order Detail: 11/03/18 09:45 Resuscitation Status Routine Resuscitation Status: FULL: Full Resuscitation MAR Reviewed: Yes Vital Signs & Weight: Vital Signs (12 hours) Temp Pulse Resp BP BP Pulse Ox 11/03/18 09:17 78 11/03/18 07:28 97.8 F 78 18 190/89 H 95 11/03/18 04:00 97.7 F 57 L 15 119/59 L 93 L Weight Weight 183 lb I&O: 11/02/18 11/03/18 11/04/18 06:59 06:59 06:59 Intake Total 240 Output Total 700 Balance -460 Result Diagrams: 11/03/18 03:23 11/03/18 03:23 EKG Reviewed by me: Yes Phys Exam - Physical Examination Constitutional: NAD HEENT: PERRLA, moist MMs, sclera anicteric Neck: no JVD, supple Respiratory: no wheezing, no rales, no rhonchi Cardiovascular: RRR, no significant murmur, no rub Gastrointestinal: soft, non-tender, no distention, positive bowel sounds Musculoskeletal: no edema, pulses present Neurological: non-focal, normal sensation Lymphatic: no nodes Psychiatric: normal affect, A&O x 3 Skin: no rash, normal turgor Dx/Plan (1) Unstable angina Status: Acute Comment: with elevated troponin (2) Anxiety disorder Code(s): F41.9 - ANXIETY DISORDER, UNSPECIFIED Status: Chronic (3) BPH (benign prostatic hyperplasia) Code(s): N40.0 - BENIGN PROSTATIC HYPERPLASIA WITHOUT LOWER URINRY TRACT SYMP Status: Chronic (4) Thrombocytosis Status: Chronic (5) CAD (coronary artery disease) Code(s): I25.10 - ATHSCL HEART DISEASE OF [place] CORONARY ARTERY W/O ANG PCTRS Status: Chronic Comment: with h/o CABG and stent (6) Hyperlipidemia Code(s): E78.5 - HYPERLIPIDEMIA, UNSPECIFIED Status: Chronic (7) Hypertension Code(s): I10 - ESSENTIAL (PRIMARY) HYPERTENSION Status: Chronic - Plan cont current plan of care, plan discussed w/ family * medication reviewed as below * symptomatic treatment * cardiology following * pt had asymptomatic pause on monitor will defer recommendation to cardiology. Review of Systems - Review of Systems ENT: negative: Ear Pain, Ear Discharge, Nose Pain, Nose Discharge, Nose Congestion, Mouth Pain, Mouth Swelling, Throat Pain, Throat Swelling, Other Respiratory: negative: Cough, Dry, Shortness of Breath, Hemoptysis, SOB with Excertion, Pleuritic Pain, Sputum, Wheezing Cardiovascular: negative: chest pain, palpitations, orthopnea, paroxysmal nocturnal dyspnea, edema, light headedness, other Gastrointestinal: negative: Nausea, Vomiting, Abdominal Pain, Diarrhea, Constipation, Melena, Hematochezia, Other Genitourinary: negative: Dysuria, Frequency, Incontinence, Hematuria, Retention , Other Musculoskeletal: negative: Neck Pain, Shoulder Pain, Arm Pain, Back Pain, Hand Pain, Leg Pain, Foot Pain, Other - Medications/Allergies Allergies/Adverse Reactions: Allergies Allergy/AdvReac Type Severity Reaction Status Date / Time codeine Allergy Verified 11/02/18 07:06 tramadol Allergy Verified 11/02/18 07:06 Medications: Current Medications Acetaminophen (Tylenol) 650 mg PO Q4H PRN PRN Reason: Headache/Fever/Mild Pain (1-3) Last Admin: 11/02/18 10:19 Dose: 650 mg Aspirin (Ecotrin) 325 mg PO DAILY [facility] Last Admin: 11/03/18 09:15 Dose: 325 mg Atorvastatin Calcium (Lipitor) 40 mg PO HS [facility] Last Admin: 11/02/18 21:39 Dose: 40 mg Bisacodyl (Dulcolax) 10 mg OK DAILYPRN PRN PRN Reason: Constipation Bisoprolol Fumarate (Zebeta) 10 mg PO DAILY [facility] Last Admin: 11/03/18 09:16 Dose: 10 mg Calcium Carbonate (Tums) 1,000 mg PO Q4H PRN PRN Reason: Heartburn or Indigestion Clopidogrel Bisulfate (Plavix) 75 mg PO DAILY [facility] Last Admin: 11/03/18 09:16 Dose: 75 mg Enoxaparin Sodium (Lovenox) 90 mg SC 0900,2100 [facility] Stop: 11/03/18 21:01 Last Admin: 11/03/18 09:17 Dose: 90 mg Famotidine (Pepcid) 20 mg PO 0900 [facility] Last Admin: 11/03/18 09:15 Dose: 20 mg Guaifenesin (Robitussin Sf) 200 mg PO Q4H PRN PRN Reason: Cough Hydralazine HCl (Apresoline) 10 mg SLOW IVP Q4H PRN PRN Reason: SBP > 180 and HR < 70 Hydrochlorothiazide (Hydrochlorothiazide) 12.5 mg PO DAILY [facility] Last Admin: 11/03/18 09:16 Dose: 12.5 mg Sodium Chloride (Normal Saline 0.9%) 1,000 mls @ 100 mls/hr IV .Q10H [facility] Lisinopril (Zestril) 5 mg PO DAILY [facility] Last Admin: 11/03/18 09:17 Dose: 5 mg Loperamide HCl (Imodium) 2 mg PO PRN PRN PRN Reason: Diarrhea/Loose Stools Loperamide HCl (Imodium) 2 mg PO PRN PRN PRN Reason: Diarrhea/Loose Stools Loratadine (Claritin) 10 mg PO DAILYPRN PRN PRN Reason: Sinus Symptoms Lorazepam (Ativan) 1 mg PO Q4H PRN PRN Reason: Anxiety/Agitation Last Admin: 11/03/18 09:15 Dose: 1 mg Miscellaneous Information (Communication Order-Pharmacy) 0 each FS .CATH 11/04 [facility] Nitroglycerin (Nitro-Bid 2% Ointment) 0.5 inch TOP Q8HR [facility] Last Admin: 11/03/18 06:50 Dose: 0.5 inch Nitroglycerin (Nitrostat) 0.4 mg SL Q5MIN PRN PRN Reason: Chest Pain Ondansetron HCl (Zofran Odt) 4 mg PO Q6H PRN PRN Reason: Nausea/Vomiting Ondansetron HCl (Zofran) 4 mg IVP Q6H PRN PRN Reason: Nausea/Vomiting Senna/Docusate Sodium (Senokot S) 2 tab PO BID PRN PRN Reason: Constipation Sodium Chloride ([place] Nasal [place] 0.65%) 0 ml EA NARE QIDPRN PRN PRN Reason: Nasal Congestion Tamsulosin HCl (Flomax) 0.4 mg PO DAILY [facility] Last Admin: 11/03/18 09:17 Dose: 0.4 mg Zolpidem Tartrate (Ambien) 5 mg PO HSPRN PRN PRN Reason: Insomnia
--- NOTE | 2018-11-03 12:23 | CON ---
DATE OF CONSULTATION: HISTORY OF PRESENT ILLNESS: Guillermo Arce is an 83-year-old white male who follows with Dr. Mario at the present time. In 02/1988, I evaluated him. He had abnormal treadmill test. He underwent catheterization and was found to have 3-vessel coronary artery disease. Those records are unavailable. He underwent CABG x4 with PEACOCK to the LAD, vein graft to the first diagonal, distal right coronary artery, and 2nd obtuse marginal. He did not return for followup. He then presented here in 11/2017 with several episodes of chest discomfort. Troponin-I went up to 1.176. He underwent catheterization by Dr. Mario. The right coronary artery was totally occluded. He had patent PEACOCK to the LAD with 50% mid LAD, 60% distal, and another 60% distal LAD lesions distal to the PEACOCK anastomosis. The vein grafts to the distal right coronary artery and 1st diagonal were patent. There was severe stenosis in the graft to the 2nd obtuse marginal. There was a 99% stenosis at the distal anastomosis as well as 70% ostial stenosis. There was difficulty in placing a stent. Initially, an LAKESHA catheter was used and Luge wire was inserted. After crossing the 99% distal anastomosis lesion, there was no flow into the 2nd obtuse marginal. A 2.0, 1.5, and 1.2 mm balloons would not pass. A Mailman wire was inserted for better support, but this would not pass after the Luge wire was removed. The LAKESHA guide catheter was then removed and an AL1 catheter was inserted. Again, the Luge wire would not pass the lesion. Whisper wire was then placed successfully across the lesion. With better support, a 1.2 -mm balloon successfully crossed the lesion followed by a 2-mm balloon. A 2.5 x 16- mm Synergy stent was then placed. There was slow flow, and adenosine and nitroglycerin were given. In the ostium of the 2nd obtuse marginal graft, a Synergy 3.5 x 12- mm stent was placed. Since that time, he has done well. He was last seen in the office in 07/2018, and was asymptomatic. Then, over the last 3 days, he has had several episodes of chest pressure, occurring at rest. These were relieved very rapidly with 1 sublingual nitroglycerin. Then, on the day of admission, he had an episode that was not relieved with sublingual nitroglycerin in 10 minutes. He took another sublingual nitroglycerin and after 10 minutes he was continued to have pain, so decided to come to the emergency room. In the emergency room, he was given sublingual nitroglycerin, Lovenox 1 mg/kg, and aspirin. He has been chest pain-free since that time. PAST MEDICAL HISTORY: 1. Coronary artery disease with CABG in 1987 followed by stent placement in the 2nd obtuse marginal graft in 11/2017. 2. Hypertension. 3. Hyperlipidemia. 4. GERD. 5. History of prostate cancer. 6. History of migraines. 7. History of macular degeneration. 8. Anxiety. OPERATIONS: 1. Tonsillectomy. 2. Cataract surgery. 3. CABG. 4. Knee surgery. 5. Vasectomy. 6. Prostate biopsy. MEDICATIONS: 1. Aspirin 81 daily. 2. Plavix 75 mg q.a.m. (he states he has been compliant with these). 3. Atorvastatin 40 daily. 4. Metoprolol and hydrochlorothiazide 10/6.25 daily. 5. Isosorbide 30 daily. 6. Lisinopril 5 mg daily. 7. Lorazepam 1-2 tablets p.r.n. 8. Nitroglycerin p.r.n. 9. Flomax 0.4 daily. ALLERGIES: CODEINE AND TRAMADOL. SOCIAL HISTORY: He does not smoke or drink. 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 FAMILY HISTORY: Unremarkable. REVIEW OF SYSTEMS: A 10-point review of systems is unremarkable. PHYSICAL EXAMINATION: VITAL SIGNS: Blood pressure 119/59 and 190/89. Pulse of 78. HEENT: PERRL. NECK: Supple. CHEST: Clear. CARDIAC: S1 and S2 are normal without any S3, S4, or murmurs. Carotid upstrokes are normal without bruits. ABDOMEN: Normal bowel sounds without tenderness or organomegaly. EXTREMITIES: No clubbing, cyanosis, or edema. NEUROLOGIC: Grossly intact. SKIN: Warm and dry. LABORATORY DATA: EKG revealed normal sinus rhythm with nonspecific ST and T- wave changes. Echocardiogram revealed ejection fraction of 50% to 55%, evidence for diastolic dysfunction, mild left atrial enlargement, mild mitral and mild tricuspid regurgitation. Hemoglobin 13.8, hematocrit 42.5, white count 9300, and platelets 686,000. Sodium 134, potassium 4.2, chloride 101, carbon dioxide 26, BUN 15, and creatinine 0.80. Troponin-I is up to 0.246. Cholesterol 126, triglycerides 91 , HDL 38, and LDL 70. Liver function tests were normal. IMPRESSION: 1. [id number] myocardial infarction, certainly from the time course, this could be due to in-stent restenosis. 2. Status post drug-eluting stents in the 2nd obtuse marginal graft - at the distal anastomosis and at the ostium. 3. Status post coronary artery bypass graft x4 in 1987. A catheterization in 11/2017; the PEACOCK was patent with some disease distal to the graft. First diagonal and the distal right coronary artery grafts were patent. 4. Hypertension. 5. Hypercholesterolemia. 6. Benign prostatic hypertrophy. 7. Anxiety. 8. Chronic thrombocytosis. PLAN: Situation was discussed with the patient. It was recommended that he undergo repeat catheterization. Risks of this were discussed including , myocardial infarction, dye reaction, vascular injury, CVA, transfusion, limb loss, renal loss, etc. Also Risks of intervention were discussed including stent placement and PTCA. Risks of this were discussed including , myocardial infarction, emergent CABG, restenosis, stent thrombosis, vessel perforation, etc. He has had no problems with the aspirin or Plavix for almost 1 year, and another drug-eluting stent will be placed if needed. We also discussed rescinding his DNR order since we will be going to the laborer pole crew, so that all measures can be used if he would have problems in the laborer pole crew. He understands and agrees to rescind this. Job ID: [id number] MTDD
[2018-11-03] MEDS: Atorvastatin Calcium 40 MG TAB PO SCH (20:47)
[2018-11-04] MEDS: Nitroglycerin 2% Ointment 1 INCH/1 GM Packet TOP SCH ×2 (05:52→19:49)
[2018-11-04] MEDS: Hydrochlorothiazide 25 MG TAB PO SCH (05:53)
[2018-11-04] MEDS: Aspirin 325 mg Enteric Coated Tablet PO SCH (05:54)
[2018-11-04] MEDS: Famotidine 20 MG TAB PO SCH (05:54)
[2018-11-04] MEDS: Clopidogrel Bisulfate 75 MG TAB PO SCH (05:54)
[2018-11-04] MEDS: Bisoprolol Fumarate 5 MG TAB PO SCH (05:54)
[2018-11-04] MEDS: Lisinopril 5 MG TAB PO SCH (05:54)
[2018-11-04] MEDS: Tamsulosin HCl 0.4 MG CAP PO SCH (05:55)
[2018-11-04] MEDS ORDERED: Sodium Chloride 0.9% 1,000 ML IV SCH ×2 (06:00→14:54)
[2018-11-04] MEDS: Lorazepam 1 MG TAB PO PRN ×2 (06:08→22:23)
[2018-11-04] MEDS ORDERED: Iopamidol 370 76% 100 ML VIAL ONE (11:14)
[2018-11-04] MEDS ORDERED: Iopamidol 370 76% 50 ML VIAL FS ONE (11:14)
[2018-11-04] MEDS ORDERED: Heparin 10,000 UNITS/1 ML VIAL ONE ×2 (11:58→13:17)
[2018-11-04] MEDS ORDERED: Lidocaine 1% (PF) 30 ML VIAL ONE (12:25)
[2018-11-04] MEDS ORDERED: Fentanyl 100 MCG/2 ML VIAL ONE (12:34)
[2018-11-04] MEDS ORDERED: Midazolam HCl 2 mg/2 ml Vial ONE (12:34)
[2018-11-04] MEDS ORDERED: Aggrastat 12.5 MG/250 ML 250 ML ONE (13:25)
[2018-11-04] MEDS ORDERED: Adenosine 6 MG/2 ML VIAL ONE (14:03)
[2018-11-04] MEDS ORDERED: Nitroglycerin 100MG/250ML BOT 250 ML ONE (14:03)
[2018-11-04] MEDS ORDERED: Nitroglycerin 50 MG/250 ML BOT 0 ML ONE (15:39)
[2018-11-04] MEDS ORDERED: Nitroglycerin 2% Ointment 1 INCH/1 GM Packet ONE (15:41)
[2018-11-04] MEDS ORDERED: Aggrastat 12.5 MG/250 ML 250 ML IVPB SCH (16:15)
[2018-11-04] MEDS ORDERED: Acetaminophen 325 MG TAB ONE ×2 (17:01)
[2018-11-04] MEDS ORDERED: Ketorolac Tromethamine 30 MG/ML VIAL ONE (18:00)
[2018-11-04] MEDS: Atorvastatin Calcium 40 MG TAB PO SCH (20:28)
--- NOTE | 2018-11-04 21:35 | PDOC.PN ---
- Subjective Encounter Start Date: 11/04/18 Encounter Start Time: 08:15 Patient seen and examined. No new complaints. No overnight events - Objective Resuscitation Status - Order Detail: 11/03/18 09:45 Resuscitation Status Routine Resuscitation Status: FULL: Full Resuscitation MAR Reviewed: Yes Vital Signs & Weight: Vital Signs (12 hours) Temp Pulse Resp BP Pulse Ox 11/04/18 11:33 98.3 F 70 15 153/65 H 94 L Weight Weight 181 lb I&O: 11/03/18 11/04/18 11/05/18 06:59 06:59 06:59 Intake Total 240 1020 1190 Output Total 700 1220 1775 Balance -745 -200 -105 Result Diagrams: 11/03/18 03:23 11/03/18 03:23 EKG Reviewed by me: Yes Phys Exam - Physical Examination Constitutional: NAD HEENT: PERRLA, moist MMs, sclera anicteric Neck: no JVD, supple Respiratory: no wheezing, no rales, no rhonchi Cardiovascular: RRR, no significant murmur, no rub Gastrointestinal: soft, non-tender, no distention, positive bowel sounds Musculoskeletal: no edema, pulses present Neurological: non-focal, normal sensation, moves all 4 limbs Lymphatic: no nodes Psychiatric: normal affect, A&O x 3 Skin: no rash, normal turgor Dx/Plan (1) Unstable angina Status: Acute Comment: with elevated troponin (2) Anxiety disorder Code(s): F41.9 - ANXIETY DISORDER, UNSPECIFIED Status: Chronic (3) BPH (benign prostatic hyperplasia) Code(s): N40.0 - BENIGN PROSTATIC HYPERPLASIA WITHOUT LOWER URINRY TRACT SYMP Status: Chronic (4) Thrombocytosis Status: Chronic (5) CAD (coronary artery disease) Code(s): I25.10 - ATHSCL HEART DISEASE OF [place] CORONARY ARTERY W/O ANG PCTRS Status: Chronic Comment: with h/o CABG and stent (6) Hyperlipidemia Code(s): E78.5 - HYPERLIPIDEMIA, UNSPECIFIED Status: Chronic (7) Hypertension Code(s): I10 - ESSENTIAL (PRIMARY) HYPERTENSION Status: Chronic - Plan cont current plan of care * medication reviewed as below * symptomatic treatment * today plan for cardiac cath as per cardiology * stable with current treatment. Review of Systems - Review of Systems ENT: negative: Ear Pain, Ear Discharge, Nose Pain, Nose Discharge, Nose Congestion, Mouth Pain, Mouth Swelling, Throat Pain, Throat Swelling, Other Respiratory: negative: Cough, Dry, Shortness of Breath, Hemoptysis, SOB with Excertion, Pleuritic Pain, Sputum, Wheezing Cardiovascular: negative: chest pain, palpitations, orthopnea, paroxysmal nocturnal dyspnea, edema, light headedness, other Gastrointestinal: negative: Nausea, Vomiting, Abdominal Pain, Diarrhea, Constipation, Melena, Hematochezia, Other Genitourinary: negative: Dysuria, Frequency, Incontinence, Hematuria, Retention , Other Musculoskeletal: negative: Neck Pain, Shoulder Pain, Arm Pain, Back Pain, Hand Pain, Leg Pain, Foot Pain, Other - Medications/Allergies Allergies/Adverse Reactions: Allergies Allergy/AdvReac Type Severity Reaction Status Date / Time codeine Allergy Verified 11/02/18 07:06 tramadol Allergy Verified 11/02/18 07:06 Medications: Current Medications Acetaminophen (Tylenol) 650 mg PO Q4H PRN PRN Reason: Headache/Fever/Mild Pain (1-3) Last Admin: 11/02/18 10:19 Dose: 650 mg Aspirin (Ecotrin) 325 mg PO DAILY [facility] Last Admin: 11/04/18 05:54 Dose: 325 mg Atorvastatin Calcium (Lipitor) 40 mg PO HS [facility] Last Admin: 11/04/18 20:28 Dose: 40 mg Bisacodyl (Dulcolax) 10 mg [place] DAILYPRN PRN PRN Reason: Constipation Bisoprolol Fumarate (Zebeta) 10 mg PO DAILY [facility] Last Admin: 11/04/18 05:54 Dose: 10 mg Calcium Carbonate (Tums) 1,000 mg PO Q4H PRN PRN Reason: Heartburn or Indigestion Clopidogrel Bisulfate (Plavix) 75 mg PO DAILY [facility] Last Admin: 11/04/18 05:54 Dose: 75 mg Famotidine (Pepcid) 20 mg PO 0900 [facility] Last Admin: 11/04/18 05:54 Dose: 20 mg Guaifenesin (Robitussin Sf) 200 mg PO Q4H PRN PRN Reason: Cough Hydralazine HCl (Apresoline) 10 mg SLOW IVP Q4H PRN PRN Reason: SBP > 180 and HR < 70 Last Admin: 11/03/18 18:05 Dose: 10 mg Hydrochlorothiazide (Hydrochlorothiazide) 12.5 mg PO DAILY [facility] Last Admin: 11/04/18 05:53 Dose: 12.5 mg Tirofiban/Sodium Chloride (Aggrastat 12.5 Mg/250 Ml) 250 mls @ 0 mls/hr IVPB INF [facility]; Protocol Stop: 11/05/18 06:00 Lisinopril (Zestril) 5 mg PO DAILY [facility] Last Admin: 11/04/18 05:54 Dose: 5 mg Loperamide HCl (Imodium) 2 mg PO PRN PRN PRN Reason: Diarrhea/Loose Stools Loperamide HCl (Imodium) 2 mg PO PRN PRN PRN Reason: Diarrhea/Loose Stools Loratadine (Claritin) 10 mg PO DAILYPRN PRN PRN Reason: Sinus Symptoms Lorazepam (Ativan) 1 mg PO Q4H PRN PRN Reason: Anxiety/Agitation Last Admin: 11/04/18 06:08 Dose: 1 mg Miscellaneous Information (Communication Order-Pharmacy) 0 each FS .CATH 11/04 [facility] Nitroglycerin (Nitrostat) 0.4 mg SL Q5MIN PRN PRN Reason: Chest Pain Ondansetron HCl (Zofran Odt) 4 mg PO Q6H PRN PRN Reason: Nausea/Vomiting Ondansetron HCl (Zofran) 4 mg IVP Q6H PRN PRN Reason: Nausea/Vomiting Senna/Docusate Sodium (Senokot S) 2 tab PO BID PRN PRN Reason: Constipation Sodium Chloride ([place] Nasal [place] 0.65%) 0 ml EA NARE QIDPRN PRN PRN Reason: Nasal Congestion Tamsulosin HCl (Flomax) 0.4 mg PO DAILY [facility] Last Admin: 11/04/18 05:55 Dose: 0.4 mg Zolpidem Tartrate (Ambien) 5 mg PO HSPRN PRN PRN Reason: Insomnia
[2018-11-04 22:50] LABS: Platelet Count 762 thou/uL (130-400)
[2018-11-05 06:20] LABS: #Basophils 0.1 thou/uL (0.0-0.2); #Eosinphils 0.2 thou/uL (0.0-0.7); #Lymphocytes 0.8 thou/uL (1.20-3.40); #Monocytes 0.8 thou/uL (0.11-0.59); #Neutrophils 6.9 thou/uL (1.40-6.50); %Basophils 0.8 % (0.0-1.0); %Eosinophils 2.1 % (0.0-10.0); %Lymphocytes 9.1 % (21.0-51.0); %Monocytes 9.1 % (0.0-10.0); %Neutrophils 78.8 % (42.0-75.0); Hemoglobin 13.4 g/dL (14.0-18.0); Mean Corpuscular HGB CONC 31.6 g/dL (32.0-36.0); Mean Corpuscular Hemoglobin 28.6 pg (27.0-31.0); Mean Corpuscular Volume 90.5 fL (78.0-98.0); Mean Platelet Volume 6.5 fL (7.4-10.4); Platelet Count 697 thou/uL (130-400); Red Blood Cell (RBC) Count 4.67 mill/uL (4.70-6.10); White Blood Cell (WBC) Count 8.8 thou/uL (4.8-10.8)
[2018-11-05 06:45] LABS: ALT (SGPT) 35 U/L (8-55); AST (SGOT) 43 U/L (5-34); Albumin 3.2 g/dL (3.4-4.8); Alkaline Phosphatase 67 U/L (40-150); Anion Gap 12 mmol/L (10-20); BUN (Urea Nitrogen) 15 mg/dL (8.4-25.7); Bilirubin, Total 0.8 mg/dL (0.2-1.2); Calc. Creatinine Clearance 80 mL/min (70-130); Calcium 8.4 mg/dL (7.8-10.44); Carbon Dioxide 22 mmol/L (23-31); Chloride 102 mmol/L (98-107); Estimated GFR-MDRD 90; Globulin 2.3 g/dL (2.4-3.5); Glucose 85 mg/dL (83-110); Potassium 4.3 mmol/L (3.5-5.1); Protein, Total 5.5 g/dL (5.8-8.1); Sodium 132 mmol/L (136-145)
[2018-11-05] MEDS: Bisoprolol Fumarate 5 MG TAB PO SCH (09:24)
[2018-11-05] MEDS: Aspirin 325 mg Enteric Coated Tablet PO SCH (09:24)
[2018-11-05] MEDS: Hydrochlorothiazide 25 MG TAB PO SCH (09:25)
[2018-11-05] MEDS: Clopidogrel Bisulfate 75 MG TAB PO SCH (09:25)
[2018-11-05] MEDS: Famotidine 20 MG TAB PO SCH (09:25)
[2018-11-05] MEDS: Lisinopril 5 MG TAB PO SCH (09:26)
[2018-11-05] MEDS: Tamsulosin HCl 0.4 MG CAP PO SCH (09:26)
--- NOTE | 2018-11-05 10:38 | DIS ---
DATE OF ADMISSION: 11/02/2018 DATE OF DISCHARGE: 11/05/2018 PRIMARY CARE PHYSICIAN: Malachi Pond MD DISCHARGE DISPOSITION: Home. PRIMARY DISCHARGE DIAGNOSES: 1. Unstable angina. 2. Status post cardiac cath and stent placement in obtuse marginal bypass graft. SECONDARY DISCHARGE DIAGNOSES: Hypertension, dyslipidemia, coronary artery disease, chronic thrombocytosis, benign enlargement of prostate, and anxiety disorder. PRIMARY PROCEDURE/OPERATION: Cardiac catheterization was performed by Dr. Chakraborty and found with left main and 3-vessel coronary artery disease, 4/4 graft were patent. The patient had successful PCI and drug with drug-eluting stent in ostium of the second obtuse marginal bypass graft. RADIOLOGICAL INVESTIGATION: Chest x-ray normal. Echocardiography showed diastolic dysfunction. SIGNIFICANT LABORATORY DATA: WBC 8.8, hemoglobin 13.4, and platelet 697. Sodium 132, potassium 4.3, BUN 15, creatinine 0.82, calcium 8.4, AST 43, ALT 35, albumin 3.2, and troponin 0.246. LDL 70. Urinalysis normal. DISCHARGE MEDICATIONS: 1. Lipitor 40 mg p.o. daily. 2. Bisoprolol with hydrochlorothiazide 10/6.25 two tablets daily. 3. Lorazepam 1 or 2 tablets p.o. daily p.r.n. 4. Lisinopril 5 mg p.o. daily. 5. Flomax 0.4 mg p.o. daily. 6. Nitroglycerin p.r.n. 7. Aspirin 81 mg daily. 8. Plavix 75 mg daily. 9. Imdur 30 mg p.o. daily. CONTRAINDICATION: None. CODE STATUS: Full code. 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 Chakraborty was following while in hospital. TEST RESULTS PENDING ON DISCHARGE: None. ALLERGIES: CODEINE AND TRAMADOL. DISCHARGE PLAN: Posthospital, the patient will follow up with primary care physician and Dr. Chakraborty as instructed. HOSPITAL COURSE: An 83-year-old male with above-mentioned medical problem, who was admitted by me. Please see my HPI for further details. The patient was having recurrent chest pain for last 1 week. His chest pain description was atypical angina. He had indeterminate troponin. He did not have any significant EKG changes. The patient has underlying coronary artery disease and he had high EVERETT score. The patient was treated with Lovenox, aspirin, Plavix, and statin therapy while in the hospital. We resumed his home medication as well while in hospital. We consulted Cardiology. Cardiology did cardiac catheterization and 2 drug- eluting stent was placed in the bypass graft. Postprocedure, the patient was observed on telemetry floor. He remained asymptomatic. His vitals are stable. On discharge, he will continue above-mentioned medication. While in hospital, echocardiography was also done and which showed diastolic dysfunction. I have seen and examined the patient at bedside today and plan of care discussed with him and his . REVIEW OF SYSTEMS: All review of systems reviewed with him and negative. PHYSICAL EXAMINATION: VITAL SIGNS: Currently, temperature 98.2, pulse 95, respiratory rate 19, saturation 100% on room air, and blood pressure 139/64. Weight 182. GENERAL: The patient is currently alert, oriented, no acute distress. HEENT: Head; normocephalic and atraumatic. Eyes; pupils are round and reactive to light. Extraocular muscle intact. LUNGS: Clear to auscultation without any rhonchi or rales. CARDIAC: S1 and S2. Regular without any murmur. ABDOMEN: Soft and benign. EXTREMITIES: No edema. NEUROLOGIC: Nonfocal examination. While in hospital, we noted that on monitor, he had 1 time when he was asleep. At that time, he had 1 less than 2 second pause, but the patient was asymptomatic and subsequently, he did not have further episodes while in the hospital. Job ID: [id number] [facility]
--- NOTE | 2018-11-05 11:44 | PDOC.PN ---
- Subjective Encounter Start Date: 11/05/18 Encounter Start Time: 09:40 Patient seen and examined. No new complaints. No overnight events - Objective Resuscitation Status - Order Detail: 11/03/18 09:45 Resuscitation Status Routine Resuscitation Status: FULL: Full Resuscitation MAR Reviewed: Yes Vital Signs & Weight: Vital Signs (12 hours) Temp Pulse Resp BP BP Pulse Ox 11/05/18 07:29 98.2 F 95 19 139/64 100 11/05/18 03:28 98.2 F 56 L 20 94/46 L 96 Weight Weight 182 lb 14.4 oz I&O: 11/04/18 11/05/18 11/06/18 06:59 06:59 06:59 Intake Total 1020 2628 Output Total 1220 2550 Balance -200 78 Result Diagrams: 11/05/18 05:42 11/05/18 05:42 EKG Reviewed by me: Yes Phys Exam - Physical Examination Constitutional: NAD HEENT: PERRLA, moist MMs, sclera anicteric Neck: no JVD, supple Respiratory: no wheezing, no rales, no rhonchi Cardiovascular: RRR, no significant murmur, no rub Gastrointestinal: soft, non-tender, no distention, positive bowel sounds Musculoskeletal: no edema, pulses present Neurological: non-focal, normal sensation, moves all 4 limbs Lymphatic: no nodes Psychiatric: normal affect, A&O x 3 Skin: no rash, normal turgor Dx/Plan (1) Unstable angina Status: Acute Comment: with elevated troponin (2) Anxiety disorder Code(s): F41.9 - ANXIETY DISORDER, UNSPECIFIED Status: Chronic (3) BPH (benign prostatic hyperplasia) Code(s): N40.0 - BENIGN PROSTATIC HYPERPLASIA WITHOUT LOWER URINRY TRACT SYMP Status: Chronic (4) Thrombocytosis Status: Chronic (5) CAD (coronary artery disease) Code(s): I25.10 - ATHSCL HEART DISEASE OF [place] CORONARY ARTERY W/O ANG PCTRS Status: Chronic Comment: with h/o CABG and stent (6) Hyperlipidemia Code(s): E78.5 - HYPERLIPIDEMIA, UNSPECIFIED Status: Chronic (7) Hypertension Code(s): I10 - ESSENTIAL (PRIMARY) HYPERTENSION Status: Chronic - Plan cont current plan of care * medication reviewed as below * symptomatic treatment * see discharge bob. Review of Systems - Review of Systems ENT: negative: Ear Pain, Ear Discharge, Nose Pain, Nose Discharge, Nose Congestion, Mouth Pain, Mouth Swelling, Throat Pain, Throat Swelling, Other Respiratory: negative: Cough, Dry, Shortness of Breath, Hemoptysis, SOB with Excertion, Pleuritic Pain, Sputum, Wheezing Cardiovascular: negative: chest pain, palpitations, orthopnea, paroxysmal nocturnal dyspnea, edema, light headedness, other Gastrointestinal: negative: Nausea, Vomiting, Abdominal Pain, Diarrhea, Constipation, Melena, Hematochezia, Other Genitourinary: negative: Dysuria, Frequency, Incontinence, Hematuria, Retention , Other Musculoskeletal: negative: Neck Pain, Shoulder Pain, Arm Pain, Back Pain, Hand Pain, Leg Pain, Foot Pain, Other - Medications/Allergies Allergies/Adverse Reactions: Allergies Allergy/AdvReac Type Severity Reaction Status Date / Time codeine Allergy Verified 11/02/18 07:06 tramadol Allergy Verified 11/02/18 07:06 Medications: Current Medications Acetaminophen (Tylenol) 650 mg PO Q4H PRN PRN Reason: Headache/Fever/Mild Pain (1-3) Last Admin: 11/02/18 10:19 Dose: 650 mg Aspirin (Ecotrin) 325 mg PO DAILY [facility] Last Admin: 11/05/18 09:24 Dose: 325 mg Atorvastatin Calcium (Lipitor) 40 mg PO HS [facility] Last Admin: 11/04/18 20:28 Dose: 40 mg Bisacodyl (Dulcolax) 10 mg [place] DAILYPRN PRN PRN Reason: Constipation Bisoprolol Fumarate (Zebeta) 10 mg PO DAILY [facility] Last Admin: 11/05/18 09:24 Dose: 10 mg Calcium Carbonate (Tums) 1,000 mg PO Q4H PRN PRN Reason: Heartburn or Indigestion Clopidogrel Bisulfate (Plavix) 75 mg PO DAILY [facility] Last Admin: 11/05/18 09:25 Dose: 75 mg Famotidine (Pepcid) 20 mg PO 0900 [facility] Last Admin: 11/05/18 09:25 Dose: 20 mg Guaifenesin (Robitussin Sf) 200 mg PO Q4H PRN PRN Reason: Cough Hydralazine HCl (Apresoline) 10 mg SLOW IVP Q4H PRN PRN Reason: SBP > 180 and HR < 70 Last Admin: 11/03/18 18:05 Dose: 10 mg Hydrochlorothiazide (Hydrochlorothiazide) 12.5 mg PO DAILY [facility] Last Admin: 11/05/18 09:25 Dose: 12.5 mg Lisinopril (Zestril) 5 mg PO DAILY [facility] Last Admin: 11/05/18 09:26 Dose: 5 mg Loperamide HCl (Imodium) 2 mg PO PRN PRN PRN Reason: Diarrhea/Loose Stools Loperamide HCl (Imodium) 2 mg PO PRN PRN PRN Reason: Diarrhea/Loose Stools Loratadine (Claritin) 10 mg PO DAILYPRN PRN PRN Reason: Sinus Symptoms Lorazepam (Ativan) 1 mg PO Q4H PRN PRN Reason: Anxiety/Agitation Last Admin: 11/04/18 22:23 Dose: 1 mg Miscellaneous Information (Communication Order-Pharmacy) 0 each FS .CATH 11/04 [facility] Nitroglycerin (Nitrostat) 0.4 mg SL Q5MIN PRN PRN Reason: Chest Pain Ondansetron HCl (Zofran Odt) 4 mg PO Q6H PRN PRN Reason: Nausea/Vomiting Ondansetron HCl (Zofran) 4 mg IVP Q6H PRN PRN Reason: Nausea/Vomiting Senna/Docusate Sodium (Senokot S) 2 tab PO BID PRN PRN Reason: Constipation Sodium Chloride ([place] Nasal [place] 0.65%) 0 ml EA NARE QIDPRN PRN PRN Reason: Nasal Congestion Tamsulosin HCl (Flomax) 0.4 mg PO DAILY [facility] Last Admin: 11/05/18 09:26 Dose: 0.4 mg Zolpidem Tartrate (Ambien) 5 mg PO HSPRN PRN PRN Reason: Insomnia
[2018-11-05 12:02] VITALS: TEMP 98
[2018-11-05 15:40] VITALS: BP 132/64
== END 2018-11-05 17:51 | disposition home or self-care (01) | DRG 247 ==
LOC: ERS 22:47 → 2NO 11-02 02:50
PROVIDERS: ADMIT Hospitalist; ATTEND Hospitalist
PROC: 027135Z Dilation of Coronary Artery, Two Arteries with Two Drug-eluting Intraluminal Devices, Percutaneous Approach (ICD-10-PCS; principal; 2018-11-02)
PROC: 4A023N7 Measurement of Cardiac Sampling and Pressure, Left Heart, Percutaneous Approach (ICD-10-PCS; 2018-11-02)
PROC: B2131ZZ Fluoroscopy of Multiple Coronary Artery Bypass Grafts using Low Osmolar Contrast (ICD-10-PCS; 2018-11-02)
PROC: B2151ZZ Fluoroscopy of Left Heart using Low Osmolar Contrast (ICD-10-PCS; 2018-11-02)
PROC: B2111ZZ Fluoroscopy of Multiple Coronary Arteries using Low Osmolar Contrast (ICD-10-PCS; 2018-11-02)
DX: I25.110 Atherosclerotic heart disease of native coronary artery with unstable angina pectoris (principal); I10 Essential (primary) hypertension; E78.5 Hyperlipidemia, unspecified; K21.9 Gastro-esophageal reflux disease without esophagitis; F41.9 Anxiety disorder, unspecified; D47.3 Essential (hemorrhagic) thrombocythemia; N40.0 Benign prostatic hyperplasia without lower urinary tract symptoms; I25.2 Old myocardial infarction; Z88.8 Allergy status to other drugs, medicaments and biological substances; Z95.1 Presence of aortocoronary bypass graft; Z88.6 Allergy status to analgesic agent; Z79.01 Long term (current) use of anticoagulants; Z79.82 Long term (current) use of aspirin; Z98.52 Vasectomy status
CPT/HCPCS: 36415; 37184; 71045; 80048; 80053; 80061; 81001; 82550; 82553; 83690; 83735; 84484; 85014; 85018; 85025; 85049; 85347; 92937; 92977; 93005; 93010; 93306; 93455; 93798; 94760; 99152; 99153; C1725; C1757; C1769; C1874; C1887; C9604; J0153; J0360; J1644; J1650; J1885; J2001; J2250; J3010; J3246; Q9967